=== PATIENT | male | born 1990 | race Caucasian/White ===

== ENCOUNTER 2018-09-08 05:58 | Emergency (ER) | payer SELFPAY ==
[~2018-09-08] VITALS: Ht 172.7 cm; Wt 99.8 kg
--- NOTE | 2018-09-08 06:02 | NUR ---
Patient BIB [facility] for pre-booking medical screening exam, transferred to bed 9. RN evaluating patient at bedside.
[2018-09-08 06:05] VITALS: BP 118/103
--- NOTE | 2018-09-08 06:09 | NUR ---
[facility] NO C/O PAIN. PT MOVED TO BED 9 FOR TACHYCARDIA. PMH--NONE RX--NONE
[2018-09-08] MEDS ORDERED: DILTIAZEM 25 MG/5 ML VIAL IVP ONE (06:25)
--- NOTE | 2018-09-08 07:02 | NUR ---
REPORT TO SALIMA BARKERSTONECUTTER OF CARE AT THIS TIME.
[2018-09-08 07:03] LABS: BARBITURATE, URINE NEGATIVE ng/ml (NEG <=200); BENZODIAZEPINE, URINE NEGATIVE ng/mL (NEG <=200); CANNABINOID, URINE NEGATIVE ng/mL (NEG <=50); COCAINE, URINE NEGATIVE ng/mL (NEG <=300); OPIATE, URINE NEGATIVE ng/mL (NEG <=2000); PHENCYCLIDINE SCREEN,URINE NEGATIVE ng/mL (NEG <=25)
--- NOTE | 2018-09-08 07:08 | NUR ---
DR. WISEMAN IS AT BEDSIDE EVALUATING PT.
--- NOTE | 2018-09-08 07:22 | NUR ---
OFFICER STATES THAT FACILITY WILL ACCEPT PT WITH TACHYCARDIA, WITH DOCTOR CLEARANCE. PT DENIES PAIN, SOB, ANXIETY, CHEST PAIN, DIZZINES, AND N/V.
[2018-09-08 07:35] VITALS: BP 112/71
--- NOTE | 2018-09-08 07:35 | NUR ---
Patient discharged with v/s stable. Written and verbal after care instructions given and explained. Patient verbalized understanding. [facility] with Pt. . All questions addressed prior to discharge. Advised to follow up with PMD.
== END 2018-09-08 07:35 ==
LOC: MED 05:58
DX: F10.129 Alcohol abuse with intoxication, unspecified (principal); R00.0 Tachycardia, unspecified; Z02.89 Encounter for other administrative examinations; V89.2XXA Person injured in unspecified motor-vehicle accident, traffic, initial encounter; Y93.89 Activity, other specified; Y92.89 Other specified places as the place of occurrence of the external cause; Y99.8 Other external cause status
CPT/HCPCS: 80305; 81002; 93005; 96374; 99283; J3490